=== PATIENT | male | born 1975 | race Caucasian/White ===

== ENCOUNTER 2022-03-09 13:37 | Outpatient (CLI) | payer OTHER, SELFPAY ==
--- NOTE | ~2022-03-09 | US_ITS ---
EXAMINATION: US soft tissue head and neck DATE: 03/09/2022 14:24 INDICATION: Mass at the right side of the neck TECHNIQUE: Multiple grayscale and Doppler ultrasound images of the region of concern at the posterola teral right neck were obtained. COMPARISON: None FINDINGS: There are a couple asymmetrically prominent right posterior cervical triangle lymph nodes with hypoec hoic cortices surrounding central echogenic fatty janneth. The lymph nodes measure 1.4 x 1.3 x 0.7 cm an d 1.4 x 0.9 x 0.6 cm both which remain within normal limits. IMPRESSION: 1. 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 Recommend continue d clinical follow-up with repeat imaging if there is any increase in size on physical exam. Reviewed, dictated and finalized at location A. IMPRESSION: 1. Asymmetric mildly prominent but still normal-sized likely reactive lymph nod es in the right posterior cervical triangle, the larger measuring 0.7 cm in max imal short axis diameter. Recommend continued clinical follow-up with repeat im aging if there is any increase in size on physical exam.
== END 2022-03-09 13:38 | disposition home or self-care (01) ==
PROVIDERS: PCP Internal Medicine; Visit Provider Clinical Nurse Specialist
DX: R59.0 Localized enlarged lymph nodes (principal)
CPT/HCPCS: 76536

== ENCOUNTER 2022-10-25 08:26 | Outpatient (CLI) | payer OTHER, SELFPAY ==
[2022-10-25 18:57] LABS: Anion Gap 7 mmol/L (8-16); Blood Urea Nitrogen 31 mg/dL (9-20); Calcium 9.2 mg/dL (8.4-10.2); Carbon Dioxide 26 mmol/L (22-30); Chloride 105 mmol/L (98-107); Estimated Glomerular Filt Rate 50; Glucose 172 mg/dL (65-110); Potassium 4.5 mmol/L (3.4-5.0); Sodium 138 mmol/L (137-145)
[2022-10-25 19:06] LABS: Parathyroid Intact 15.4 pg/mL (7.5-53.5)
[2022-10-25 21:39] LABS: Vitamin D 25 Hydroxy < 12.8 ng/mL
[2022-10-30 17:49] LABS: Testosterone Free 59.8 pg/mL (35.0-155.0); Testosterone Total 241 ng/dL (250-1100)
== END 2022-10-25 08:27 | disposition home or self-care (01) ==
LOC: ANHGOSHLAB 08:29
PROVIDERS: PCP Internal Medicine; Visit Provider Clinical Nurse Specialist
DX: R53.83 Other fatigue (principal); E83.52 Hypercalcemia; E87.5 Hyperkalemia
CPT/HCPCS: 36415; 80048; 82306; 82330; 83970; 84402; 84403

== ENCOUNTER 2023-10-28 00:58 | Day surgery (SDC) | payer OTHER, SELFPAY ==
[2023-09-29 13:27] VITALS: BMI 36.9
--- NOTE | 2023-10-26 10:07 | SUR.PREOP ---
Patient called regarding upcoming procedure. Reviewed preop instructions, appointment times, and procedure prep.
[2023-10-28 07:36] VITALS: BP 135/77; PULSE 96; RESP 20; TEMP 36.6; O2SAT 99
[2023-10-28] MEDS: LACTATED RINGERS 1,000 ML 150 ML IV CONT (07:47)
[2023-10-28 07:48] LABS: Glucose Point of Care 124 mg/dl (65-105)
--- NOTE | 2023-10-28 08:25 | PM.HPGS ---
History of Present Illness History of Present Illness Consent: Risks, benefits, and alternatives have been discussed and questions answered. Patient agrees to proceed with procedure. Chief complaint: neoplasm screening Narrative: Tonny Moscoso is a 48 year old male here for screening colonoscopy Review of Systems Constitutional: Constitutional: Denies headache(s) and Denies weakness Eyes: Eyes: Denies blurry vision ENT: Reports Normal hearing present, Denies headache(s) and Denies neck pain Cardiovascular: Cardiovascular: Denies chest pain and Denies dyspnea Respiratory: Respiratory: Denies dyspnea Gastrointestinal: Gastrointestinal: Reports no additional gastrointestinal complaints Genitourinary: Genitourinary: Denies dysuria Musculoskeletal: Musculoskeletal: Denies neck pain Integumentary/Breasts: Skin/Breast: Denies dry skin Neurologic: Reports Normal hearing present, Denies headache(s) and Denies weakness Psychiatric: Psychiatric: Denies anxiety Endocrine: Endocrine: Denies change in body appearance Hematologic/Lymphatic: Hematologic/Lymphatic: Denies easy bleeding Allergic/Immunologic: Allergic/Immunologic: Denies urticaria PMF Past Medical History Medical History Acute hyperkalemia Back Pain Class 2 severe obesity due to excess calories with serious comorbidity and body mass index (BMI) of 38.0 to 38.9 in adult Decreased renal function Enlarged lymph node in neck Erectile dysfunction Fatigue GERD (gastroesophageal reflux disease) Hypercalcemia Hypertension Insomnia Proteinuria Severe obesity with body mass index (BMI) of 36.0 to 36.9 with serious comorbidity Type 2 diabetes mellitus Family History Family History Mother Diabetes mellitus Father Family history unknown Other Hypertension Social History Social History Smoking status: Never smoker Smoking end date: 09/26/08 Alcohol intake: current Alcohol use details: rarely Substance use: never Substance use type: does not use Lack of Transportation: No Lack of Food: Never True Current Housing: I Have Housing Concerned About Future Housing: No Difficulty Paying Gas/Electric Bills: No Difficulty Paying for Meds: No Currently Unemployed: No Education: Bachelor's Degree Difficulty w/ Childcare or Family Care: No Living arrangements: with family Gender identity (if verbalized by the patient): Male Spiritual care concerns: No Meds Home Medications and Allergies Home Medications Medication Instructions Recorded Confirmed Type aspirin 81 mg tablet,delayed 81 mg PO DAILY 08/07/19 09/29/23 History release (Adult Low Dose Aspirin) cholecalciferol (vitamin D3) 50 50 mcg PO DAILY 02/09/23 09/29/23 History mcg (2,000 unit) tablet semaglutide 2 mg/dose (8 mg/3 mL) 2 mg (0.75 mL) subcut WEEKLY #3 mL 08/09/23 09/29/23 Rx subcutaneous pen injector (Ozempic) amlodipine 10 mg tablet 10 mg PO DAILY 09/29/23 10/28/23 History atorvastatin 10 mg tablet 10 mg PO DAILY 09/29/23 10/28/23 History glimepiride 4 mg tablet 4 mg PO BID 09/29/23 10/28/23 History lisinopril 40 mg tablet 40 mg PO DAILY 09/29/23 10/28/23 History Allergies Allergy/AdvReac Type Severity Reaction Status Date / Time No Known Allergies Allergy Verified 10/28/23 07:34 Vital Signs Vital Signs - 24 hr 10/28/23 07:36 Temperature 97.9 F Pulse Rate 96 Respiratory Rate 20 Blood Pressure 135/77 Pulse Oximetry 99 Oxygen Delivery Room Air Exam Const: General: comfortable and no acute distress HENMT: Face/Nose/Sinus: Normal nares present Eyes: General: appearance normal, both eyes and all related structures Neck: Neck: no JVD Resp: Auscultation: clear to auscultation bilaterally Cardio: Rate: regular rate Rhythm: regular rhythm GI:
[2023-10-28 08:53] VITALS: BP 115/71; PULSE 80; RESP 20; O2SAT 99
[2023-10-28 09:03] VITALS: BP 126/82; PULSE 79; RESP 20; O2SAT 99
[2023-10-28 09:13] VITALS: BP 126/82; PULSE 80; RESP 20; O2SAT 99
--- NOTE | 2023-11-14 14:45 | WPDANESEPPF ---
Anes - Initial Pre Proc Eval Procedure: Operation Date: 10/28/23 08:30 Proposed Procedures p Screening Colonoscopy - Luis Salinas MD Date/Time: 11/14/23 14:45 Surgeon: Luis Salinas MD Pre Op Diagnosis: neoplasm screening Patient Data Age: 48 Gender: M Height: 1.88 m Weight: 129.7 kg Last Vital Signs Temp 97.9 F 10/28/23 07:36 Pulse 80 10/28/23 09:13 Resp 20 10/28/23 09:13 BP 126/82 10/28/23 09:13 Pulse Ox 99 10/28/23 09:13 O2 Del Method Room Air 10/28/23 09:13 Allergies Allergy/AdvReac Type Severity Reaction Status Date / Time No Known Allergies Allergy Verified 11/14/23 08:11 Home Medications Medication Instructions Recorded Confirmed Type aspirin 81 mg tablet,delayed 81 mg PO DAILY 08/07/19 11/14/23 History release (Adult Low Dose Aspirin) cholecalciferol (vitamin D3) 50 50 mcg PO DAILY 02/09/23 11/14/23 History mcg (2,000 unit) tablet glimepiride 4 mg tablet 4 mg PO BID 09/29/23 11/14/23 History amlodipine 10 mg tablet 10 mg PO DAILY #90 tabs 11/08/23 11/14/23 Rx atorvastatin 10 mg tablet 10 mg PO DAILY #90 tabs 11/08/23 11/14/23 Rx lisinopril 40 mg tablet 40 mg PO DAILY #90 tabs 11/08/23 11/14/23 Rx semaglutide 2 mg/dose (8 mg/3 mL) 2 mg (0.75 mL) subcut WEEKLY #3 mL 11/08/23 11/14/23 Rx subcutaneous pen injector (Ozempic) Patient hx anesthesia problems: none Family hx anesthesia problems: none Results Review: All pre-operative results and documents have been reviewed as part of the pre-operative evaluation. [facility] Past Medical History Medical History (Reviewed 08/09/23 @ 08:02 by Brielle Bernstein [facility]) Acute hyperkalemia Back Pain Class 2 severe obesity due to excess calories with serious comorbidity and body mass index (BMI) of 38.0 to 38.9 in adult Decreased renal function Enlarged lymph node in neck Erectile dysfunction Fatigue GERD (gastroesophageal reflux disease) Hypercalcemia Hypertension Insomnia Proteinuria Severe obesity with body mass index (BMI) of 36.0 to 36.9 with serious comorbidity Type 2 diabetes mellitus Family History Family History Mother Diabetes mellitus Father Family history unknown Other Hypertension Social History Social History Smoking status: Never smoker Smoking end date: 09/26/08 Alcohol intake: current Alcohol use details: rarely Substance use: never Substance use type: does not use Lack of Transportation: No Lack of Food: Never True Current Housing: I Have Housing Concerned About Future Housing: No Difficulty Paying Gas/Electric Bills: No Difficulty Paying for Meds: No Currently Unemployed: No Education: Bachelor's Degree Difficulty w/ Childcare or Family Care: No Living arrangements: with family Gender identity (if verbalized by the patient): Male Spiritual care concerns: No Anes - Eval Final PreProcedure Day of Procedure 11/14/23 14:45 Patient weight: obese Heart: regular rate and rhythm Lungs: clear to auscultation Airway: Mallampati scale class III Neurological: alert and oriented Last oral intake: >/= 8 hours ASA classification: III Emergent: no Anesthetic plan: proceed Anesthesia type and monitoring: general GIVS and standard monitoring Results Review: All pre-operative results and documents have been reviewed as part of the pre-operative evaluation. Informed Consent: The patient's anesthetic plan and its attendant risks and benefits were discussed with the patient/family/POA. Questions were solicited and answers provided to the satisfaction of the patient/family/POA.
== END 2023-10-28 09:18 | disposition home or self-care (01) ==
PROVIDERS: PCP Internal Medicine; Referring Provider Clinical Nurse Specialist; Visit Provider Internal Medicine Gastroenterology
PROC: 0DJD8ZZ Inspection of Lower Intestinal Tract, Via Natural or Artificial Opening Endoscopic (ICD-10-PCS; CPT 45378; principal; 2023-10-28 08:30)
DX: Z12.11 Encounter for screening for malignant neoplasm of colon (principal); K57.30 Diverticulosis of large intestine without perforation or abscess without bleeding; I10 Essential (primary) hypertension; E11.9 Type 2 diabetes mellitus without complications; G47.00 Insomnia, unspecified; N52.9 Male erectile dysfunction, unspecified; K21.9 Gastro-esophageal reflux disease without esophagitis; E87.5 Hyperkalemia; E83.52 Hypercalcemia; R80.9 Proteinuria, unspecified; Z79.82 Long term (current) use of aspirin; Z79.85 Long-term (current) use of injectable non-insulin antidiabetic drugs; Z79.84 Long term (current) use of oral hypoglycemic drugs
CPT/HCPCS: 45378; 82948; J2704; J7120

== ENCOUNTER 2024-08-10 09:10 | Outpatient (CLI) | payer OTHER, SELFPAY ==
--- NOTE | ~2024-08-10 | US_ITS ---
EXAMINATION: US renal BI DATE: 08/10/2024 09:33 INDICATION: Stage IIIa chronic kidney disease TECHNIQUE: Multiple ultrasound grayscale images of the kidneys were obtained. COMPARISON: 03/20/2019 FINDINGS: The right kidney measures 11.2 x 6.5 x 6.6 cm. The left kidney measures 13.6 x 7.4 x 5.2 cm. The kidn eys demonstrate normal echogenicity. There is mild hydronephrosis at the left kidney. No stones ident ified. The bladder is normal. IMPRESSION: 1. Mild left hydronephrosis of indeterminate etiology. Reviewed, dictated and finalized at location B. OR PATIENT ACCOUNT REPRESENTATIVE
== END 2024-08-10 09:11 | disposition home or self-care (01) ==
LOC: MICIMG 09:11
PROVIDERS: PCP Internal Medicine; Visit Provider Clinical Nurse Specialist
DX: N18.31 Chronic kidney disease, stage 3a (principal)
CPT/HCPCS: 76775